=== PATIENT | male | born 1945 | race Caucasian/White ===

== ENCOUNTER → 2019-08-09 | Outpatient (CLI) | payer MEDICARE ==
--- NOTE | 2019-08-09 15:54 | XR ---
EXAMINATION TYPE: XR cervical spine comp DATE OF EXAM: 08/09/2019 COMPARISON: None HISTORY: 74-year-old male bilateral chest pain, neck pain TECHNIQUE: 5 views FINDINGS: The predental space widening. Difficulty visualizing the prevertebral space due to excessive flexion the neck. Moderate multilevel endplate spondylosis. Hypertrophic facet and uncovertebral joint arthro patrick. This contributes to moderate to severe right-sided neuroforaminal stenosis at C2-C3 and C3-C4 and moderate on the left at C4-C5. Normal odontoid view. C7-T1 is obscured by the patient's shoulders . Remaining alignment is maintained. IMPRESSION: 1. Unable to adequately assess the prevertebral soft tissues due to neck positioning. If clinical jonas picion for an occult underlying osseous injury, CT can be performed. 2. Moderate spondylotic change. The cervicothoracic junction is obscured by the patient's shoulders a nd not assessed. The remaining cervical alignment is maintained. 3. Bony neuroforaminal stenoses as outlined above, greatest in the right upper cervical spine.
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
== END | disposition home or self-care (01) ==
LOC: RADXRMAIN 12:25
PROVIDERS: ATTEND Internal Medicine
DX: M48.02 Spinal stenosis, cervical region (principal); M47.812 Spondylosis without myelopathy or radiculopathy, cervical region; R07.9 Chest pain, unspecified
CPT/HCPCS: 71110; 72050